=== PATIENT | female | born 1955 | race Caucasian/White ===

== ENCOUNTER 2017-09-18 13:04 | Emergency (ER) | END 2017-09-18 14:59 | disposition home or self-care (01) ==

== ENCOUNTER 2018-01-31 22:13 | Emergency (ER) | END 2018-02-01 01:50 | disposition home or self-care (01) ==

== ENCOUNTER 2018-04-28 21:33 | Emergency (ER) | payer MEDICAID ==
[~2018-04-28] VITALS: Ht 162.6 cm; Wt 80.2 kg
[~2018-04-28 21:33] MED LIST: ACET500C5 PO; AUG875 PO; NAPR-985 PO; OMEP20CA16 PO; POLY17PO6 PO; PRED20TA PO
[2018-04-28 21:43] VITALS: Ht 162.6 cm; Wt 80.2 kg
[2018-04-29] MEDS ORDERED: KETOROLAC 30 MG INJ IM STA (00:30)
[2018-04-29] MEDS ORDERED: FIORICET PO (01:47)
[2018-04-29 02:00] VITALS: BP 141/72; PULSE 76; RESP 18
--- NOTE | 2018-04-29 07:06 | ERD ---
ER Documentation Chief Complaint Chief Complaint HEADACHE, LEFT SIDE, NO WEAKNESS, NO N/V X4DAYS HPI 63-year-old female presents for headache times 4 days. She states that headache is on the left side of her head. Rated 6 out of 10. She denies any nausea or vomiting. Took Ibuprofen 600 mg at home without relief. Headaches noted to be sharp. Headache is noted to be the same as what she had in the past. No other complaints. ROS All systems reviewed and are negative except as per history of present illness. Medications Home Meds Active Scripts Acetamin/Butalbital/Caffeine* (Fioricet*) [id number] Tab, 1 TAB PO Q4H PRN for PAIN LEVEL 1-5, #30 TAB Prov:LAMAR LOMBARDI DO 04/29/18 Acetaminophen* (Tylophen*) 500 Mg Capsule, 1 CAP PO Q6H PRN for PAIN AND OR ELEVATED TEMP, #20 CAP Prov:BONILLA BARNES COMPOUNDING ASSISTANT 02/01/18 Omeprazole* (Omeprazole*) 20 Mg Capsule.dr, 20 MG PO DAILY, #20 Prov:JIMMY HOLT PA-C 09/18/17 Acetaminophen* (Tylophen*) 500 Mg Capsule, 1 CAP PO Q6H PRN for PAIN AND OR ELEVATED TEMP, #20 CAP Prov:JIMMY HOLT PA-C 09/18/17 Polyethylene Glycol* (Miralax*) 17 Gm Powd.pack, 17 GM PO DAILY, #7 Prov:LONG KAUFMAN DO 08/22/15 Prednisone* (Prednisone*) 20 Mg Tab, 20 MG PO DAILY, #10 TAB Prov:LUCIE WILSON 10/12/14 Naproxen* (Naprosyn*) 500 Mg Tablet, 500 MG PO BID, #20 TAB Prov:LUCIE WILSON 10/12/14 Amoxicillin-Clavulanate K* (Augmentin*) 875 Mg Tab, 875 MG PO BID for 7 Days, TAB Prov:LUCIE WILSON 10/12/14 Allergies Allergies: Coded Allergies: No Known Allergy (Unverified , 10/14/11) PMhx/Soc History of Surgery: Yes (cholecystectomy, left HAND) Anesthesia Reaction: No Hx Neurological Disorder: No Hx Respiratory Disorders: No Hx Cardiac Disorders: No Hx Psychiatric Problems: No Hx Miscellaneous Medical Probl: Yes (gastritis) Hx Alcohol Use: No Hx Substance Use: No Hx Tobacco Use: No Smoking Status: Never smoker Physical Exam Vitals Vital Signs Date Temp Pulse Resp B/P (MAP) Pulse Ox O2 O2 Flow FiO2 Time Delivery Rate 04/29/18 97.8 76 18 141/72 100 Room Air 02:00 (95) 04/28/18 98.8 79 19 145/70 99 21:43 (95) Physical Exam Const: No acute distress Head: Atraumatic, no temporal area tenderness to palpation Eyes: Normal Conjunctiva, pupils equal, round, reactive to light bilaterally ENT: Normal External Ears, bilateral tympanic membrane intact without erythema or bulging noted, Nose and Mouth. No tonsillar swelling or exudate noted Neck: Full range of motion. No meningismus, no bruits noted Resp: Clear to auscultation bilaterally Cardio: Regular rate and rhythm, no murmurs, bilateral radial and dorsalis pedis pulses intact Skin: No petechiae or rashes Ext: No cyanosis, or edema, 5 out of 5 muscular bilateral upper and lower extremities Neur: Awake and alert, bilateral upper and lower extremity sensation intact Psych: Normal Mood and Affect Results 24 hrs Current Medications Medications Dose Sig/Mona Start Time Status Last (Trade) Ordered Route PRN Stop Time Admin Dose Reason Admin Ketorolac 30 mg ONCE STAT 04/29/18 DC 04/29/18 Tromethamine IM 00:30 00:36 (Toradol) 04/29/18 00:31 Procedures/MDM Medical Decision Making: Differential diagnosis includes but not limited to primary headache, subarachnoid hemorrhage, meningitis, temporal arteritis, glaucoma, hypertension, cerebral ischemia, carotid or vertebral arterial dissection, brain tumor. Patient appeared well on physical examination, nontoxic appearing. No history of fever. There is low suspicion for meningitis. Given patient's age and no temporal area tenderness to palpation, low suspicion for temporal arteritis. Patient has no vision changes and pupils are reactive bilaterally, low suspicion for glaucoma. There is also no focal neurologic deficits to suggest a brain tumor. Patient has normal sensation and muscle strength, low suspicion for cerebral ischemia. Given headache is similar to prior headaches, patient possibly has a primary headache. In the ER patient given Toradol Symptoms improved with treatment. Patient given prescription for Fioricet Patient advised to follow up with PCP in 1-2 days. Patient advised to return to ED for new or worsening symptoms. Patient stable on discharge from the ED. Disclaimer: Inadvertent spelling and grammatical errors are likely due to EHR/dictation software use and do not reflect on the overall quality of patient care. Also, please note that the electronic time recorded on this note does not necessarily reflect the actual time of the patient encounter. Departure Diagnosis: Primary Impression: Headache Condition: Fair Patient Instructions: Self-Care for Headaches Referrals: COUNT INCLUDES THE [facility] YOU HAVE RECEIVED A MEDICAL SCREENING EXAM AND THE RESULTS INDICATE THAT YOU DO NOT HAVE A CONDITION THAT REQUIRES URGENT TREATMENT IN THE EMERGENCY DEPARTMENT. FURTHER EVALUATION AND TREATMENT OF YOUR CONDITION CAN WAIT UNTIL YOU ARE SEEN IN YOUR DOCTORS OFFICE WITHIN THE NEXT 1-2 DAYS. IT IS YOUR RESPONSIBILITY TO MAKE AN APPOINTMENT FOR FOLOW-UP CARE. IF YOU HAVE A PRIMARY DOCTOR --you should call your primary doctor and schedule an appointment IF YOU DO NOT HAVE A PRIMARY DOCTOR YOU CAN CALL OUR PHYSICIAN REFERRAL HOTLINE AT IF YOU CAN NOT AFFORD TO SEE A PHYSICIAN YOU CAN CHOSE FROM THE FOLLOWING [facility] CLINICS [facility] [address] [facility] [facility] [address] [facility] [address] [facility] [facility] [address] [facility]. [facility] [address] [facility]. [facility]. [address] Additional Instructions: Llame al doctor MAANA y mazin gely JEFFERSON PARA DENTRO DE 1-2 CHAND.Dgale a la secretaria que nosotros le instruimos hacer esta jefferson.Avise o llame si anguiano condicin se empeora antes de la jefferson. Regresa aqui si peor o no mejor. LAMAR LOMBARDI DO Apr 29, 2018 07:06
== END 2018-04-29 02:02 | disposition home or self-care (01) ==
LOC: FTE 21:33
DX: R51 Headache (principal)
CPT/HCPCS: 96372; J1885; Z7502

== ENCOUNTER 2018-07-17 18:49 | Emergency (ER) | payer MEDICAID, OTHER ==
[~2018-07-17] VITALS: Ht 154.9 cm; Wt 79.5 kg
[~2018-07-17 18:49] MED LIST changes: +FIORICET PO
[2018-07-17 19:09] VITALS: Ht 154.9 cm; Wt 79.5 kg
--- NOTE | 2018-07-18 00:42 | ERD ---
ER Documentation Chief Complaint Chief Complaint Pt hit head 12 days ago, c/o l sided body pain HPI 63-year-old female, presents the emergency department, complaining of headache and generalized arthralgia for more than 10 days. The patient reports a history of direct blunt trauma with her refrigerator at home, no loss of consciousness, no blurry vision, no nausea or vomiting, no distal weakness, numbness or tingling. The patient has been taking [id number] Motrin with adequate improvement of the pain. She is also requesting a refill for omeprazole and topical clotrimazole. ROS All systems reviewed and are negative except as per history of present illness. Medications Home Meds Active Scripts Lorazepam* (Ativan*) 0.5 Mg Tablet, 0.5 MG PO QHS, #10 TAB Prov:TIMA COLEMAN MD 07/18/18 Acetaminophen* (Tylenol*) 325 Mg Tablet, 2 TAB PO Q6 PRN for PAIN AND OR ELEVATED TEMP, #20 TAB Prov:TIMA COLEMAN MD 07/18/18 Clotrimazole* (Clotrimazole* AF) 1% - 30 Gm Cream.gm., 1 APPLIC TOP BID for 7 Days, #2 TUB Prov:TIMA COLEMAN MD 07/18/18 Omeprazole* (Omeprazole*) 40 Mg Capsule., 40 MG PO DAILY, #30 CAP Prov:TIMA COLEMAN MD 07/18/18 Acetamin/Butalbital/Caffeine* (Fioricet*) [id number] Tab, 1 TAB PO Q4H PRN for PAIN LEVEL 1-5, #30 TAB Prov:LAMAR LOMBARDI DO 04/29/18 Acetaminophen* (Tylophen*) 500 Mg Capsule, 1 CAP PO Q6H PRN for PAIN AND OR ELEVATED TEMP, #20 CAP Prov:BONILLA BARNES NP 02/01/18 Omeprazole* (Omeprazole*) 20 Mg Capsule., 20 MG PO DAILY, #20 Prov:JIMMY HOLT PA-C 09/18/17 Acetaminophen* (Tylophen*) 500 Mg Capsule, 1 CAP PO Q6H PRN for PAIN AND OR ELEVATED TEMP, #20 CAP Prov:JIMMY HOLT PA-C 09/18/17 Polyethylene Glycol* (Miralax*) 17 Gm Powd.pack, 17 GM PO DAILY, #7 Prov:LONG KAUFMAN 08/22/15 Prednisone* (Prednisone*) 20 Mg Tab, 20 MG PO DAILY, #10 TAB Prov:LUCIE WILSON. 10/12/14 Naproxen* (Naprosyn*) 500 Mg Tablet, 500 MG PO BID, #20 TAB Prov:LUCIE WILSON S. 10/12/14 Amoxicillin-Clavulanate K* (Augmentin*) 875 Mg Tab, 875 MG PO BID for 7 Days, TAB Prov:LUCIE WILSON. 10/12/14 Allergies Allergies: Coded Allergies: No Known Allergy (Unverified , 10/14/11) PMhx/Soc History of Surgery: Yes (cholecystectomy, left HAND) Anesthesia Reaction: No Hx Neurological Disorder: No Hx Respiratory Disorders: No Hx Cardiac Disorders: No Hx Psychiatric Problems: No Hx Miscellaneous Medical Probl: Yes (gastritis) Hx Alcohol Use: No Hx Substance Use: No Hx Tobacco Use: No Smoking Status: Never smoker FmHx Family History: No diabetes, No coronary disease Physical Exam Vitals Vital Signs Date Temp Pulse Resp B/P (MAP) Pulse Ox O2 O2 Flow FiO2 Time Delivery Rate 07/17/18 98.6 72 16 157/68 99 19:09 (97) Physical Exam Const: No acute distress Head: Atraumatic Eyes: Normal Conjunctiva ENT: Normal External Ears, Nose and Mouth. Neck: Full range of motion. No meningismus. Resp: Clear to auscultation bilaterally Cardio: Regular rate and rhythm, no murmurs Abd: Soft, non tender, non distended. Normal bowel sounds Skin: No petechiae or rashes Back: No midline or flank tenderness Ext: No cyanosis, or edema Neur: Awake and alert Psych: Normal Mood and Affect Procedures/MDM Vital signs stable, Physical exam unremarkable, neurovascular exam intact. Differential diagnosis include but not limited to: Classical migraine, sinusitis, visual corrective problems, side effects of medications, dehydration, electrolyte imbalance, endocrine/autoimmune medical condition, stress, anxiety, tension headache. Low suspicion for meningitis, TRACER POWDER BLENDER tumor, cerebrovascular event. Physical examination and clinical presentation consistent most likely with tension headache. During the ED course the patient remained stable, no new complaints. Results and clinical impression discussed with patient who agrees with manag ement. The patient is stable to be treated outpatient and will be discharged home, some side effects of prescribed medications (headache, rash, nausea, vomiting, diarrhea, drowsiness, habituation, bleeding, hypertension, interactions with other medications) were reviewed. Follow up with the primary care provider in the next 48h has been recommended. If symptoms persist, worsen or new symptoms develop, then patient should return to the ED immediately. Instructions explained and given directly by me to the patient with acknowledgment and demonstrated understanding. Disclaimer: Inadvertent spelling and grammatical errors are likely due to EHR/dictation software use and do not reflect on the overall quality of patient care. Also, please note that the electronic time recorded on this note does not necessarily reflect the actual time of the patient encounter. Departure Diagnosis: Primary Impression: Headache Additional Impression: Arthralgia Condition: Stable Additional Instructions: Muchas jennifer por [facility] para anguiano servicio. Esperamos que en anguiano visita a la geri de emergencia anguiano problema medico haya sido solucionado y que se sienta mucho mejor. Para estar seguros que anguiano mejoria sigue en proceso, le pedimos el favor de hacer gely sami de seguimiento medico con anguiano doctor primario en los proximos 2-4 goyal. Lleve con usted estos documentos y las medicinas recetadas. Si michael sintomas empeoran, NO SE ESPERE, por favor regrese a geri de emergencia INMEDIATAMENTE. En [place] que usted no tenga un mdico de atencin primaria: Llame al mdico o clnica comunitaria de referencia que aparece abajo lesley las horas de consultorio para hacer gely sami para que le vean. CLINICAS: [facility] [phone] [address] [facility] 603 [phone] [address] [facility] 620 [phone] [address] [facility] [phone] [facility] [phone] [address] [facility]. [phone] [place] Jul 18, 2018 00:42
[2018-07-18] MEDS ORDERED: CLOT30CR24 TOP (00:46)
[2018-07-18] MEDS ORDERED: LORA-441 PO (00:46)
[2018-07-18] MEDS ORDERED: OMEP40CA6 PO (00:46)
[2018-07-18] MEDS ORDERED: ACET325T33 PO (00:46)
[2018-07-18] MEDS ORDERED: KETOROLAC 15 MG INJ IM STA (00:56)
[2018-07-18 01:06] VITALS: BP 158/81; PULSE 69; RESP 18
== END 2018-07-18 01:07 | disposition home or self-care (01) ==
LOC: FTE 18:49
DX: R51 Headache (principal); M25.50 Pain in unspecified joint
CPT/HCPCS: 96372; J1885; Z7502

== ENCOUNTER 2018-12-27 01:49 | Emergency (ER) | payer MEDICAID ==
[~2018-12-27] VITALS: Ht 152.4 cm; Wt 77.6 kg
[~2018-12-27 01:49] MED LIST changes: +ACET325T33 PO; +CLOT30CR24 TOP; +CYCL10TA7 PO; +IBUP-1561 PO; +LORA-441 PO; -OMEP20CA16 PO; +OMEP20CA17 PO; +OMEP40CA38 PO
[2018-12-27 02:02] VITALS: BP 166/74; PULSE 71; RESP 22; Ht 152.4 cm; Wt 77.6 kg
[2018-12-27] MEDS ORDERED: KETOROLAC 30 MG INJ IM STA (03:24)
== END 2018-12-27 04:27 | disposition home or self-care (01) ==
LOC: E/R 01:49
DX: R51 Headache (principal)
CPT/HCPCS: 81003; 96372; J1885; Z7502